=== PATIENT | female | born 1970 | race Two or more races ===

== ENCOUNTER → 2020-04-12 | Emergency (ER) | payer SELFPAY ==
[~2020-04-12] VITALS: Ht 162.6 cm; Wt 113.4 kg
[~2020-04-12] MED LIST: DiphenhydrAMINE 50mg/ml Inj IM ONE; Haloperidol 5mg/ml Inj IM ONE; Haloperidol 5mg/ml Inj ONE; LORazepam Inj 2mg/ml 1ml IM ONE; LORazepam Inj 2mg/ml 1ml ONE
[2020-04-12 03:10] VITALS: BP 172/68
--- NOTE | 2020-04-12 03:10 | NUR ---
ED Nurse Note: Pt JERARDO RA [address] ([facility] and [address] [id number]) accompanied by [employer]. Per EMS report pt was standing in the middle of the road and was found by [employer], pt became agitated and combative with [employer], EMS gave 5mg IM Versed. Upon arrival pt has eyes closed, arousable to voice. Unable to answer questions. Pt has poor grooming. VSS.
--- NOTE | 2020-04-12 03:11 | NUR ---
ED Nurse Note: Room checked for safety and is free of harmful stimuli, safety precautions in place. Pt denies thought of self harm, or thoughts of harming others. EDMD aware.
--- NOTE | 2020-04-12 03:20 | NUR ---
ED Nurse Note: urine sent to lab
--- NOTE | 2020-04-12 03:44 | Emergency Room Report ---
History of Present Illness General Chief Complaint: Behavioral Complaint Source: Patient, EMS Present Illness HPI This is a [age]-year-old female who is homeless. She presents with altered mental status. History is limited because of her psychiatric condition. She was yelling and stopped by police car. She was agitated and received Ativan. Here she gave my name but frustration was unable to pull it up. She denies suicidal thought homicidal thought. He denies any drugs or alcohol. No other complaint. She is calm here. Allergies: Coded Allergies: No Known Allergies (Unverified , 04/12/20) COVID-19 Screening COVID-19 risk:Contact w/high r: No Has patient experienced bravo: No COVID-19 Testing performed [employer]: No Patient History Past Medical History: see triage record, old chart reviewed, unable to obtain Past Surgical History: unable to obtain Family History: unable to obtain Social History: tobacco use Now: No Immunizations: other Reviewed Nursing Documentation: PMH: Agreed; PSxH: Agreed Nursing Documentation-PMH History Of Psychiatric Problem: Yes Review of Systems All Other Systems: limited - Secondary to her condition Physical Exam Vital Signs Date Time Temp Pulse Resp B/P (MAP) Pulse Ox O2 Delivery O2 Flow Rate FiO2 04/12/20 02:57 97.2 84 18 172/68 (102) 98 Room Air Vitals with high blood pressure Sp02 EP Interpretation: reviewed, normal General Appearance: alert/responsive, no apparent distress, non-toxic Head: normocephalic, atraumatic Eyes: PERRL, EOMI ENT: oropharynx normal Neck: supple/symm/no masses Respiratory: effort normal, no rhonchi, no wheezing Cardiovascular: no murmur, gallop, rub Gastrointestinal: non-tender, no mass, non-distended, no rebound/guarding, normal bowel sounds Musculoskeletal: gait & station normal Neurologic: oriented x3, sensory intact, motor strength/tone normal Skin: no rash, normal palpation Medical Decision Making Homeless Attestation I, The treating physician, Dr Nahum Ventura, has assessed and agrees that patient is medically stable for discharge to an outpatient disposition. Diagnostic Impression: Primary Impression: Acute psychosis ER Course This patient presents with acute psychosis. I suspect there is some underlying psychiatric disorder. Patient has been calm here. Patient denies suicidal thoughts or homicidal thought. There is no criteria for 5150 at this moment in time. This patient is a chronic risk of self injury due to poor impulse control, limited coping skills, and judgment intermittently impaired by intoxication. I believe that the available clinical evidence to suggest that these josselyn cteristics derived primarily from personality disorder and are likely very stable over time. Hospitalization would likely attenuate risk of self-harm only during chcf period, without lasting risk reduction. Serious self-harm, while possible, would likely be inadvertent, and because of impulsivity, and foreseeable. For these reasons, I do not believe hospitalization would provide meaningful reduction in risk of self-harm. Last Vital Signs Date Time Temp Pulse Resp B/P (MAP) Pulse Ox O2 Delivery O2 Flow Rate FiO2 04/12/20 02:57 97.2 84 18 172/68 (102) 98 Room Air Status: improved Disposition: HOME, SELF-CARE Condition: Stable Referrals: NOT CHOSEN IPA/,REFERRING (PCP) Additional Instructions: Follow-up with mental health in 7 days. Return if symptoms worsen. Nahum Ventura MD Apr 12, 2020 03:44
--- NOTE | 2020-04-12 04:12 | NUR ---
ED Nurse Note: pt laying in bed with eyes closed, arousable to voice. No complaints from pt. Warm blankets provided. Safety precautions remain in place.
--- NOTE | 2020-04-12 05:10 | NUR ---
ED Nurse Note: Pt resting in bed with eyes closed, breathing even and unlabored. No complaints from pt. Safety precautions remain in place.
--- NOTE | 2020-04-12 06:47 | NUR ---
ED Nurse Note: PT became aggressive and physically and verbally abusive with staff during discharge. She began expressing paranoid delusions and flight of ideas. She refused to sign discharge papers. She expressed an extreeme change of emotion from calm and cooperative to yelling and htting staff members when attempting discharge. Pt became resistive to care and started yelling racist comments at staff. ER MD determined that pt needed further psych eval and placement due to erratic behavior. Pt placed in treatment room for safety. vitals are stable on room air as documented. Handoff given to Toi Rn from primary RN.
[2020-04-12 06:57] LABS: BASOPHILS % (AUTO) 0.4 % (0.0-2.0); EOSINOPHILS % (AUTO) 1.3 % (0.0-3.0); HEMATOCRIT 36.5 % (37.0-47.0); LYMPHOCYTES % (AUTO) 17.4 % (20.0-45.0); MEAN CORPUSCULAR VOLUME 80 FL (80-99); MONOCYTES % (AUTO) 6.5 % (1.0-10.0); NEUTROPHILS % (AUTO) 74.4 % (45.0-75.0); PLATELET COUNT 311 K/UL (150-450); RED BLOOD COUNT 4.54 M/UL (4.20-5.40); RED CELL DISTRIBUTION WIDTH 15.1 % (11.6-14.8); WHITE BLOOD COUNT 7.7 K/UL (4.8-10.8)
--- NOTE | 2020-04-12 07:00 | NUR ---
HAND-OFF: Report given to HERMES Robertson.
[2020-04-12 07:02] LABS: ANION GAP 13 mmol/L (5-15); BLOOD UREA NITROGEN 29 mg/dL (7-18); CALCIUM 9.1 MG/DL (8.5-10.1); CARBON DIOXIDE 23 MMOL/L (21-32); CHLORIDE 103 MMOL/L (98-107); CREATININE 0.8 MG/DL (0.55-1.30); POTASSIUM 3.2 MMOL/L (3.5-5.1); SODIUM 138 MMOL/L (136-145)
[2020-04-12 07:07] LABS: ALANINE AMINOTRANSFERASE 50 U/L (12-78); ALBUMIN 3.7 G/DL (3.4-5.0); ALBUMIN/GLOBULIN RATIO 0.8 (1.0-2.7); ALKALINE PHOSPHATASE 114 U/L (46-116); ASPARTATE AMINO TRANSFERASE 38 U/L (15-37); BILIRUBIN,TOTAL 0.4 MG/DL (0.2-1.0)
[2020-04-12 07:10] VITALS: BP 165/68
--- NOTE | 2020-04-12 10:00 | NUR ---
appears to be sleeping no distress noted
--- NOTE | 2020-04-12 14:24 | Emergency Room Report ---
Physical Exam Vital Signs Date Time Temp Pulse Resp B/P (MAP) Pulse Ox O2 Delivery O2 Flow Rate FiO2 04/12/20 02:57 97.2 84 18 172/68 (102) 98 Room Air Medical Decision Making Diagnostic Impression: Primary Impression: Acute psychosis ER Course Assumed care of the patient from the previous provider at approximately 1400. Please refer to initial note for full history and physical exam. Briefly, 50-year-old female presenting as Darya Stanton for acute psychosis. Patient's been medically cleared by prior providers. Awaiting transfer to psychiatric facility. 1755: Patient eloped from the emergency department. IV had been previously removed. Was noted to ambulate with a steady gait. Last Vital Signs Date Time Temp Pulse Resp B/P (MAP) Pulse Ox O2 Delivery O2 Flow Rate FiO2 04/12/20 07:10 85 16 165/68 100 04/12/20 03:10 97.2 Room Air Disposition: ELOPED Condition: Unknown Referrals: [facility]. [facility] Psych ER - Peds ER - Patient Instructions: Self-Destructive Behavior Additional Instructions: Follow-up with mental health in 7 days. Return if symptoms worsen. Jurgen Saldaña MD Apr 12, 2020 14:24
== END | disposition left against medical advice (07) ==
LOC: EDBD 03:10 → EMR 03:29
DX: F23 Brief psychotic disorder (principal); Z72.0 Tobacco use; Z59.0 Homelessness; Z53.29 Procedure and treatment not carried out because of patient's decision for other reasons
CPT/HCPCS: 36415; 80053; 80307; 85025; 96372; 99284; G0480; J1200; J1630